=== PATIENT | male | born 1945 | race Caucasian/White ===

== ENCOUNTER → 2016-04-26 | Outpatient (CLI) | payer OTHER, MEDICARE ==
[2016-04-26 10:58] LABS: BASOPHILS # (AUTO) 0.04 10*3/UL; BASOPHILS % (AUTO) 0.8 % (0-1); EOSINOPHILS % (AUTO) 3.9 % (0-8); HEMOGLOBIN 15.8 g/dL (14.0-18.0); IMM GRAN % (AUTO) 0.2 % (0-5); IMM GRAN# (AUTO) 0.01 10*3/UL; LYMPHOCYTES # (AUTO) 1.07 10*3/uL; LYMPHOCYTES % (AUTO) 21.1 % (10-50); MEAN CORPUSCULAR HEMOGLOBIN 29.4 PG (27-31); MEAN CORPUSCULAR HGB CONC 33.6 g/dL (33-37); MEAN PLATELET VOLUME 10.1 FL (7.4-12.2); MONOCYTES # (AUTO) 0.44 10*3/UL (0.3-0.8); MONOCYTES % (AUTO) 8.7 % (5-15); NEUTROPHILS # (AUTO) 3.32 10*3/UL; NEUTROPHILS % (AUTO) 65.3 % (50-80); RDW COEFFICIENT OF VARIATION 14.2 % (11.5-14.5); RED BLOOD COUNT 5.37 10^6/uL (4.70-6.10); WHITE BLOOD COUNT 5.08 10^3/uL (4.8-10.8)
[2016-04-26 10:59] LABS: PLATELET MORPHOLOGY COMMENT NORMAL MORPHOLOGY (NORM)
[2016-04-26 11:04] LABS: BILIRUBIN,URINE NEGATIVE (NEG); CLARITY,URINE CLEAR (CLEAR); GLUCOSE, URINE (UA) NEGATIVE (NEG); LEUKOCYTE ESTERASE ,URINE NEGATIVE (NEG); NITRATE,URINE NEGATIVE (NEG); OCCULT BLOOD,URINE NEGATIVE (NEG); PH,URINE 5.5 (5.0-8.5); PROTEIN,URINE NEGATIVE (NEG); UROBILINOGEN,URINE 0.2 mg/dL (0.2)
[2016-04-26 11:13] LABS: URINE SAMPLE TYPE VOIDED SPECIMEN
[2016-04-26 11:16] LABS: LDL CHOLESTEROL,CALCULATED 127.6 mg/dL; URIC ACID 4.2 mg/dl (3.8-8.5)
[2016-04-28 08:03] LABS: BILIRUBIN,TOTAL 1.3 mg/dL (0.3-1.2); BUN/CREATININE RATIO 21.25 (6-20); CALCIUM 9.9 mg/dL (8.7-10.7); CREATININE 0.8 mg/dL (0.70-1.50); POTASSIUM 4.2 meq/L (3.8-5.2); TOTAL PROTEIN 7.1 g/dL (6.1-8.0)
== END ==
LOC: MOB LAB 09:57
DX: I10 Essential (primary) hypertension (principal); E55.9 Vitamin D deficiency, unspecified; M10.9 Gout, unspecified; Z12.5 Encounter for screening for malignant neoplasm of prostate
CPT/HCPCS: 36415; 80053; 80061; 81001; 82306; 84443; 84550; 85025; G0103; 99213

== ENCOUNTER → 2016-08-12 | Outpatient (CLI) | payer OTHER, MEDICARE ==
[2016-08-12 17:29] LABS: BUN/CREATININE RATIO 16.66 (6-20); CALCIUM 9.5 mg/dL (8.7-10.7); SERUM ALBUMIN 4.3 g/dL (3.5-4.8)
== END ==
LOC: MOB LAB 14:52
DX: H02.403 Unspecified ptosis of bilateral eyelids (principal); E66.9 Obesity, unspecified; I10 Essential (primary) hypertension
CPT/HCPCS: 36415; 80053

== ENCOUNTER → 2016-09-22 | Outpatient (CLI) | payer OTHER, MEDICARE | LOC: SLEEP LAB 20:03 | DX: G47.33 Obstructive sleep apnea (adult) (pediatric) (principal); G47.34 Idiopathic sleep related nonobstructive alveolar hypoventilation | CPT/HCPCS: 95810 ==

== ENCOUNTER → 2016-10-11 | Outpatient (CLI) | payer OTHER, MEDICARE | LOC: MMPC 11:11 | DX: H02.403 Unspecified ptosis of bilateral eyelids (principal); I10 Essential (primary) hypertension; E66.9 Obesity, unspecified; G47.30 Sleep apnea, unspecified; M10.9 Gout, unspecified; E55.9 Vitamin D deficiency, unspecified | CPT/HCPCS: 99213; G0463 ==

== ENCOUNTER → 2016-11-16 | Outpatient (CLI) | payer OTHER, MEDICARE | LOC: SLEEP LAB 20:48 | DX: G47.33 Obstructive sleep apnea (adult) (pediatric) (principal); G47.34 Idiopathic sleep related nonobstructive alveolar hypoventilation | CPT/HCPCS: 95811 ==

== ENCOUNTER 2018-02-13 06:03 | Inpatient (IN) ==
[~2018-02-13 06:03] MED LIST: BUPivacaine Liposome/PF (Exparel) Inj 20ml vial INFIL ONE; Ketorolac Inj 30 MG, Morphine Inj (Ortho Cocktail) 5 MG, BUPivacaine Inj 0.25% PF 150 MG SPLASH ONE; LIDOCAINE W/ SODIUM BICARB 0.5 ML SYR ONE; LIDOCAINE W/ SODIUM BICARB 0.5 ML SYR SUBD ONE; Lactated Ringers 1,000 ML PRIMARY IV ONE; Lactated Ringers 1,000 ML PRIMARY IV SCH; Nasal Sanitizer POPSWAB ampule 3 AMP (Nozin) PREOP DOSE ENOS SCH; ceFAZolin Inj 2gm (Premix) 2 GM/50 ML BAG IV ONE
[2018-02-13 06:47] LABS: BILIRUBIN,URINE NEGATIVE (NEG); CLARITY,URINE CLEAR (CLEAR); COLOR,URINE YELLOW (Y); GLUCOSE, URINE (UA) NEGATIVE (NEG); OCCULT BLOOD,URINE NEGATIVE (NEG); PH,URINE 5.5 (5.0-8.5); PROTEIN,URINE NEGATIVE (NEG); UROBILINOGEN,URINE 0.2 EU/dL (0.2)
[2018-02-13 06:49] LABS: URINE SAMPLE TYPE CLEAN CATCH URINE
[2018-02-13] MEDS ORDERED: MIDAZOLAM HCL 2 MG/2 ML VIAL ONE (06:57)
[2018-02-13] MEDS ORDERED: LIDOCAINE 2%/ EPI 1:200,000 - 20 ML VIAL ONE (06:57)
[2018-02-13] MEDS ORDERED: BUPIVACAINE 0.5% W/ EPI - 10 ML VIAL ONE (06:58)
[2018-02-13] MEDS ORDERED: fentaNYL Inj 250 MCG/5 ML VIAL ONE (06:58)
[2018-02-13] MEDS ORDERED: PROPOFOL 10 MG/1 ML (200 MG/20 ML) VIAL IV ONE ×2 (07:16→11:54)
[2018-02-13] MEDS ORDERED: Sodium Chloride 0.9% 500 ML ONE (07:19)
[2018-02-13] MEDS ORDERED: Sodium Chloride 0.9% 0 ML PRIMARY IV ONE (07:19)
[2018-02-13] MEDS ORDERED: HEPARIN 10,000 UNIT/1 ML ONE (07:23)
[2018-02-13] MEDS ORDERED: Gentamicin Inj 40 MG/ML VIAL ONE (07:23)
[2018-02-13] MEDS ORDERED: BACITRACIN 50,000 UNIT VIAL IRRIG ONE (07:24)
--- NOTE | 2018-02-13 07:41 | CRNA.PROCE ---
Nerve Block Documentation - - Safety Measures: Time Out Taken, Site Verified - - Type of Nerve Block Used: Left Adductor Canal Nerve Block Position for Nerve Block: Supine Moniters Used During Block: EKG, SPO2, NIBP Oxygen Supplemented: Yes Sedation Used - Enter Amount in Comment Field [ANES.SEDAT]: Midazolam (mg): Yes (2mg), Fentanyl (mcg): Yes (100mcg) Skin Prep Used: ChloroPrep Technique: Ultrasound Nerve Block Needle Used: 80 mm ProBlk II Local Anesthetic - Enter Amt in Comment Field [ANES.LOCNB]: 0.5 % Bupivicaine with Epinephrine 1:200,000 (mL): Yes (20ml), 2 % Xylocaine with Epinephrine 1: 200,000 (mL): Yes (20ml) Anesthesia Time - Other Weight: 119.295 kg Height: 6 ft 3 in Body Mass Index (BMI): 32.8
[2018-02-13] MEDS ORDERED: BUPivacaine Liposome/PF (Exparel) Inj 20ml vial INFIL ONE (07:46)
[2018-02-13] MEDS ORDERED: ceFAZolin Inj 3 GM in Sodium Chloride 0.9% 100 ML IV ONE (08:00)
[2018-02-13] MEDS ORDERED: ePHEDrine Inj 50 MG/ML AMP ONE (08:25)
[2018-02-13] MEDS ORDERED: KETAMINE 100 MG/1 ML - 5 ML ONE (08:27)
[2018-02-13] MEDS ORDERED: Sodium Chloride 0.9% vial 10 ML ONE (08:30)
[2018-02-13] MEDS ORDERED: Bacteriostatic NaCl Inj 30ml Vial ONE (08:30)
[2018-02-13] MEDS ORDERED: TRANEXAMIC ACID 1,000 MG / 10 ML VIAL ONE ×2 (08:33→10:51)
[2018-02-13] MEDS ORDERED: Lactated Ringers 1,000 ML PRIMARY IV ONE (09:49)
[2018-02-13] MEDS ORDERED: HYDROmorphone 2 MG/1 ML ONE (12:21)
--- NOTE | 2018-02-13 12:36 | ORTHO.OP ---
- - -: See Dictated Operative Report Procedure Codes - Lower Extremity/Knee Procedures Primary Lower Extremity Procedure Code: 20557 : TKA (Mimi DAVIS assisted)
[2018-02-13] MEDS ORDERED: MAG HYDROX/AL HYDROX/SIMETH 30 ML SUSP PO PRN (12:56)
[2018-02-13] MEDS ORDERED: BISACODYL 10 MG SUPPOSITORY RECTAL PRN (12:56)
[2018-02-13] MEDS ORDERED: Prochlorperazine Tab 10 MG TAB PO PRN (12:56)
[2018-02-13] MEDS ORDERED: BISACODYL 5 MG TABLET PO PRN (12:56)
[2018-02-13] MEDS ORDERED: diphenhydrAMINE 25 MG CAPSULE PO PRN (12:56)
[2018-02-13] MEDS ORDERED: ACETAMINOPHEN 325 MG TABLET PO PRN (12:56)
[2018-02-13] MEDS ORDERED: CALCIUM CARBONATE 500 MG (TUMS) CHEWABLE TABLET PO PRN (12:56)
[2018-02-13] MEDS ORDERED: ONDANSETRON 4 MG/2 ML VIAL IVP PRN (12:56)
[2018-02-13] MEDS ORDERED: HYDROmorphone 2 MG/1 ML IVP PRN (12:56)
[2018-02-13] MEDS ORDERED: Ondansetron ODT Tab 8 MG TAB PO PRN (12:56)
--- NOTE | 2018-02-13 13:09 | DI ---
LEFT KNEE, 02/13/2018 11:36 AM: Clinical History: Status post total knee replacement. Osteoarthritis. Previous Exam: 02/12/[address] scan of the left knee from 01/10/2018. AP and lateral views are submitted. The patient is status post total left knee replacement. The prost hetic joint articulates normally. Reading: Status post total left knee replacement. The prosthetic joint articulates normally.
--- NOTE | 2018-02-13 13:42 | CONSULT ---
Consult Note - Consult Consult Date: 02/13/18 Reason for Consult: PostOp Consulation : Ortho Requesting Physician: Dr. Morales Primary Care Provider: Tomas Coleman MD - History of Present Illness History of Present Illness: This is a 72 years old male with medical history significant for history of hypertension, gout, sleep apnea on CPAP who came into the hospital to have left total knee replacement and was done by Dr. Morales today. The hospitalist service were consulted for management of medical issues. Patient was seen postoperatively. He had the a block so he is not complaining from any pain. There is no shortness of breath, nausea. He took his medication earlier today. Past Medical History Medical History: 1. Hypertension. 2. History of gout. 3. History of for sleep apnea on CPAP. 4. History of mitral valve prolapse Surgical History: 1. History of appendectomy. 2. History of tonsillectomy. 3. History of umbilical hernia repair Family History: Reviewed an Not Pertinent Past Social History: Does not smoke, does drink. No drugs. Tobacco Use: Never Smoker In the Past 12 Months, Have Used or Abuse Any of the Following Substance: None Alcohol Use: None Review of Systems - Review of Systems All Systems: Reviewed & No Additional Complaints Except as Stated Medication / Allergies Home Medications: Home Medications 3 Medication Instructions Recorded Confirmed Type Aspirin [Aspirin Ec] 1 tab PO DAILY tab 11/11/13 02/08/18 History Cholecalciferol (Vitamin D3) 1 tab PO DAILY tab 11/11/13 02/13/18 History [Vitamin D3] allopurinol 300 mg tablet 300 mg PO QDAY #90 tab 09/08/17 02/13/18 Rx amlodipine 5 mg tablet 5 mg PO QD #90 tab 09/08/17 02/13/18 Rx benazepril 40 mg tablet 40 mg PO QD #90 tab 09/08/17 02/13/18 Rx latanoprost 0.005 % eye drops 1 drp OP QDAY #2.5 ml 09/08/17 02/13/18 Rx terazosin 5 mg capsule 5 mg PO QD #90 cap 09/08/17 02/13/18 Rx scopolamine 1 mg over 3 days 1 patch TRANSDERM Q3D PRN #10 ea 09/19/17 02/13/18 Rx transdermal patch indomethacin 50 mg capsule 50 mg PO TID PRN cap 10/19/17 02/13/18 History Allergies/Adverse Reactions: Allergies 3 Allergy/AdvReac Type Severity Reaction Status Date / Time No Known Drug Allergies Allergy NOT Verified 02/13/18 06:30 APPLICABLE Exam - Vitals Vital Signs: Vital Signs Temperature 97.5 F Temperature Source Temporal Artery Scan Pulse Rate [Pulse Oximeter] 53 Pulse Rate 61 Respiratory Rate 16 Blood Pressure [Left Arm] 124/71 Blood Pressure 128/70 Pulse Ox 93 Oxygen Flow Rate RA Oxygen Delivery Method Room Air Height 6 ft 3 in Weight 263 lb - General General Appearance: No Acute Distress, Cooperative, Obese - Head Head Exam: Normal Inspection - Eye Eye Exam: POSITIVE: Normal Appearance - ENT ENT Exam: POSITIVE: Normal Exam - Neck Neck Exam: Normal Inspection - Respiratory Respiratory Exam: POSITIVE: Clear to Auscultation - Bilaterally - Cardiovascular Cardiovascular Exam: POSITIVE: RRR - GI/Abdominal GI/Abdominal Exam: POSITIVE: Normal Bowel Sounds, Non Tender, Non Distended, Soft, No Organomegaly - Rectal Rectal Exam: POSITIVE: Deferred - External Exam: POSITIVE: Deferred - Extremities Additional Extremities Exam Details: Dressing applied to the left knee. SCD on the right. - Neurological Neurological Exam: POSITIVE: Alert, Oriented x 3, CN II-XII Intact, No Facial Droop, Speech Intact / Clear - Psychiatric Psychiatric Exam: POSITIVE: Normal Affect Assessment and Plan - Patient Problems (1) Status post left knee replacement Current Visit: Yes Status: Acute Comment: Pain medication, antiemetics and DVT prophylaxis were written by Dr. Morales. He put him on Lovenox. Code(s): Z96.652 - Presence of left artificial knee joint (2) Benign essential hypertension Current Visit: No Status: Chronic Onset Date: 09/11/14 Comment: Same med Code(s): I10 - Essential (primary) hypertension (3) Sleep apnea Current Visit: No Status: Chronic Onset Date: 11/11/13 Comment: Continue CPAP Code(s): G47.30 - Sleep apnea, unspecified Qualifiers: Sleep apnea type: obstructive Qualified Code(s): G47.33 - Obstructive sleep apnea (adult) (pediatric); G47.33 - Obstructive sleep apnea (adult) ( pediatric) (4) Gout Current Visit: No Status: Chronic Onset Date: 11/11/13 Comment: Continue with allopurinol Code(s): M10.9 - Gout, unspecified
[2018-02-13] MEDS: HYDROcodone-APAP 10 MG-325 MG TABLET PO PRN ×3 (13:45→23:52)
[2018-02-13] MEDS: Lactated Ringers 1,000 ML PRIMARY IV SCH ×2 (13:45→23:49)
[2018-02-13] MEDS: ceFAZolin Inj 3 GM in Sodium Chloride 0.9% 100 ML IV SCH ×2 (16:43→23:48)
--- NOTE | 2018-02-13 17:59 | CRNA.PROGR ---
Anesthesia Time - Procedure/Recovery Time Start Date: 02/13/18 End Date: 02/13/18 Anesthesia : Time In: 07:51 Anesthesia : Time Out: 12:05 Anesthesia : Total Time: 254 - Block Time Start Date: 02/13/18 End Date: 02/13/18 PreOp Block : Time In: 07:00 PreOp Block : Time Out: 07:10 PreOp Block : Total Time: 10 - Total Anesthesia Time Total Anesthesia Time (minutes): 264 - Other Weight: 119.295 kg Height: 6 ft 3 in Body Mass Index (BMI): 32.8 Physical Status: P3 Anesthesia Type: General Anesthesia : LMA
--- NOTE | 2018-02-13 18:00 | CRNA.PROGR ---
Anesthesia Recovery Phase I - Post Anesthesia Evaluation Patient's Condition on Arrival in Phase I: Stable Pain Level: 2
--- NOTE | 2018-02-13 20:02 | ORTHO.PROG ---
Last Taken Vital Signs: Vital Signs - Last Taken Temperature 98 F 02/13/18 16:46 Pulse Rate 75 02/13/18 16:46 Respiratory Rate 20 02/13/18 16:46 Blood Pressure 142/65 02/13/18 16:46 Pulse Ox 94 02/13/18 16:46 Subjective: Patient with no pain in left knee well-controlled with blocks and intraoperative injection Objective: Patient and straight leg raise motor and sensory exam of the ankle is good dressing is clean and dry. Patient with good pulses brisk refill Laboratory Results 02/13/18 02/13/18 Range/Units 06:05 06:40 Ur Collection Type Clean catch urine Urine Color Yellow (Y) Urine Clarity Clear (CLEAR) Urine pH 5.5 (5.0-8.5) Ur Specific [place] 1.025 (1.005-1.030) Urine Protein Negative (NEG) mg/dl Urine Glucose (UA) Negative (NEG) mg/dL Urine Ketones Negative (NEG) Urine Occult Blood Negative (NEG) Urine Nitrate Negative (NEG) Urine Bilirubin Negative (NEG) Urine Urobilinogen 0.2 (0.2) EU/dL Ur Leukocyte Esterase Negative (NEG) Blood Type A POSITIVE Antibody Screen Negative Crossmatch See Detail Vital Signs (Last 8 hours) Temp Pulse Pulse Resp BP BP Pulse Ox 02/13/18 16:46 98 F 75 20 142/65 94 02/13/18 14:45 98 F 55 L 16 143/68 97 02/13/18 14:15 97.7 F 53 L 20 145/70 98 02/13/18 13:45 97.4 F 53 L 16 125/58 94 02/13/18 13:30 97.5 F 53 L 16 124/71 93 02/13/18 13:00 97.4 F 51 L 28 H 124/71 92 02/13/18 12:56 16 02/13/18 12:33 61 14 128/70 95 02/13/18 12:24 63 14 125/70 92 02/13/18 12:14 63 14 121/69 96 02/13/18 12:10 56 L 14 116/75 96 02/13/18 12:05 97.1 F 71 14 104/83 95 Assessment: Left total knee replacement doing well Plan: Pain control with oral and IV medications available as blocks wear off Ice and elevation Physical therapy and occupational therapy for mobilization DVT prophylaxis with pneumatic sequentials and Lovenox
[2018-02-13] MEDS: DOCUSATE 100 MG CAPSULE PO SCH (20:07)
[2018-02-13] MEDS: Terazosin Cap 5 MG CAP PO SCH (20:08)
[2018-02-14] MEDS: HYDROcodone-APAP 10 MG-325 MG TABLET PO PRN ×5 (04:47→20:25)
[2018-02-14 05:33] LABS: BLOOD UREA NITROGEN 17 mg/dL (7-22); BUN/CREATININE RATIO 21.25 (6-20); Hematocrit [HCT] 41.9 % (42.0-52.0); Hemoglobin [HGB] 13.4 g/dL (14.0-18.0); MEAN CORPUSCULAR VOLUME 90.7 FL (80-90); MEAN PLATELET VOLUME 10.4 FL (7.4-12.2); RED BLOOD COUNT 4.62 10^6/uL (4.70-6.10)
--- NOTE | 2018-02-14 07:36 | ORTHO.PROG ---
Last Taken Vital Signs: Vital Signs - Last Taken Temperature 98.4 F 02/14/18 05:00 Pulse Rate 78 02/14/18 05:00 Respiratory Rate 20 02/14/18 05:00 Blood Pressure 144/69 02/14/18 05:00 Pulse Ox 94 02/14/18 05:00 Subjective: Patient doing well good pain control this morning Objective: Left dressing is clean and dry motor and sensory exam in the lower extremity is good patient with good motion foot and ankle and knee. Patient with dressing in place. Pain popliteal or discomfort no proximal thigh pain or adductor pain. No distal swelling or edema Laboratory Results 02/13/18 02/14/18 02/14/18 Range/Units 06:40 04:35 04:35 WBC 6.44 (4.8-10.8) 10^3/uL RBC 4.62 L (4.70-6.10) 10^6/uL Hgb 13.4 L (14.0-18.0) g/dL Hct 41.9 L (42.0-52.0) % MCV 90.7 H (80-90) FL MCH 29.0 (27-31) PG MCHC 32.0 L (33-37) g/dL RDW Std Deviation 47.2 (39-50) fL RDW Coeff of Emely 14.4 (11.5-14.5) % Plt Count 153 (140-350) 10*3/uL MPV 10.4 (7.4-12.2) FL Sodium 142 (135-145) meq/L Potassium 4.0 (3.8-5.2) meq/L Chloride 108 (98-112) meq/L Carbon Dioxide 26 (23-33) meq/L Anion Gap 8 (5-20) BUN 17 (7-22) mg/dL Creatinine 0.8 (0.70-1.50) mg/dL BUN/Creatinine Ratio 21.25 H (6-20) Glucose 111 H (78-110) mg/dL Calculated Osmolality 296.0 H (267-292) mOsm/kg Calcium 8.6 L (8.7-10.7) mg/dL Blood Type A POSITIVE Antibody Screen Negative Crossmatch See Detail Vital Signs (24 hrs) Temp Pulse Pulse Resp BP BP Pulse Ox 02/14/18 05:00 98.4 F 78 20 144/69 94 02/14/18 00:06 97.8 F 85 16 161/71 92 02/13/18 20:28 98.7 F 81 20 136/66 93 02/13/18 16:46 98 F 75 20 142/65 94 02/13/18 14:45 98 F 55 L 16 143/68 97 02/13/18 14:15 97.7 F 53 L 20 145/70 98 02/13/18 13:45 97.4 F 53 L 16 125/58 94 02/13/18 13:30 97.5 F 53 L 16 124/71 93 02/13/18 13:00 97.4 F 51 L 28 H 124/71 92 02/13/18 12:56 16 02/13/18 12:33 61 14 128/70 95 02/13/18 12:24 63 14 125/70 92 02/13/18 12:14 63 14 121/69 96 02/13/18 12:10 56 L 14 116/75 96 02/13/18 12:05 97.1 F 71 14 104/83 95 Assessment: Left total knee replacement doing well Plan: Continue with previous plan anticoagulation physical therapy and occupational therapy, pain control, DVT prophylaxis
--- NOTE | 2018-02-14 08:01 | PDOC(PROG) ---
Date of Service: 02/14/18 Time of Service: 08:00 Interval History: Subjective Patient said he had a good night last night, pain is under control. No new symptoms. Objective : Data - Labs CBC and BMP: 02/14/18 04:35 02/14/18 04:35 Objective : Exam - General General Appearance: No Acute Distress, Cooperative, Obese - Head Head Exam: Normal Inspection - Eye Eye Exam: Normal Appearance - ENT ENT Exam: Normal Exam - Neck Neck Exam: Normal Inspection - Respiratory Respiratory Exam: Clear to Auscultation - Bilaterally - Cardiovascular Cardiovascular Exam: RRR - GI/Abdominal GI/Abdominal Exam: Normal Bowel Sounds, Non Tender, Non Distended, Soft, No Organomegaly - Rectal Rectal Exam: Deferred - External Exam: Deferred Exam: Deferred - Extremities Additional Extremities Exam Details: SCD boots applied - Neurological Neurological Exam: Alert, Oriented x 3, CN II-XII Intact, No Facial Droop, Speech Intact / Clear - Psychiatric Psychiatric Exam: Normal Affect Assessment and Plan - Patient Problems (1) Status post left knee replacement Current Visit: Yes Status: Acute Comment: Continue PT and OT, for DVT prophylaxis he is on Lovenox. Same pain medications. Code(s): Z96.652 - Presence of left artificial knee joint (2) Benign essential hypertension Current Visit: No Status: Chronic Onset Date: 09/11/14 Comment: Same medications Code(s): I10 - Essential (primary) hypertension (3) Sleep apnea Current Visit: No Status: Chronic Onset Date: 11/11/13 Comment: He is on CPAP Code(s): G47.30 - Sleep apnea, unspecified Qualifiers: Sleep apnea type: obstructive Qualified Code(s): G47.33 - Obstructive sleep apnea (adult) (pediatric); G47.33 - Obstructive sleep apnea (adult) ( pediatric) (4) Gout Current Visit: No Status: Chronic Onset Date: 11/11/13 Comment: Same med Code(s): M10.9 - Gout, unspecified
[2018-02-14] MEDS: ENOXAPARIN SODIUM 30 MG/0.3 ML SYRINGE SUBCUT SCH ×2 (08:43→20:24)
[2018-02-14] MEDS: CHOLECALCIFEROL 1000 IU TABLET PO SCH (08:43)
[2018-02-14] MEDS: BENAZEPRIL HCL 20 MG TABLET PO SCH (08:43)
[2018-02-14] MEDS: AmLODIPine Tab 5 MG TABLET PO SCH (08:44)
[2018-02-14] MEDS: ALLOPURINOL 300 MG TABLET PO SCH (08:44)
[2018-02-14] MEDS: DOCUSATE 100 MG CAPSULE PO SCH ×2 (08:44→20:25)
[2018-02-14] MEDS ORDERED: BENAZEPRIL 10 MG TABLET PO SCH (09:00)
--- NOTE | 2018-02-14 10:33 | PTI REPORT ---
Thank you for the referral of [facility] Patient was seen on 02/13/18 for Total Knee Replacement SUBJECTIVE: The patient is a 72 year old male who under went a left total knee replacement this morning. Patient states that he is doing well he reports 0 out of 10 pain but does state that he has a little numbness still in the lower extremity secondary to his adductor block. Patient states that he lives here in [place] with his he states that they live in a split level home that has 6 stairs into the house and 12 stairs within the house he states that he will be staying in the downstairs area where he has a bedroom and bathroom all on one floor. Patient states that he was independent with ADL's prior to surgery and did not use any assisted device prior to surgery. PAST MEDICAL HISTORY: Past medical history can be found in the patient's medical record. OBJECTIVE FINDINGS: Patient was alert and oriented and standing up upon PT arrival. Patient was supine in bed with head of bed elevated. Patient did have PREVENA dressing over his total knee replacement and was covered with an kevin bandage. Patients blood pressure was taken in supine position 128/67. Patient was able to move from a supine to seated edge of bed position with stand by assist times 1 for safety once in a seated position patient stated he felt a little lightheaded but demonstrated good seated balance. Patients blood pressure 146/57. Patient sat edge of bed for a couple of minutes a gait belt was placed around patient and patient was instructed on how to properly perform a sit to stand transfer with utilizing the walker. Patient was able to perform the sit to stand transfer with contact guard assist times 1 for safety once in a standing position patient stated that he had a little bit more light headedness but did have fair standing balance with hand held assist times 2 on the walker and contact guard assist his blood pressure in standing position 119/77. Patient did state that he wanted to try to use the bathroom once he was standing and did use the bedside urinal standing which did take him approx. 4 minutes of standing time. Patient did require contact guard assist times 2 for standing balance at that time. When patient was completed with that task he did want to ambulate a short distance in the room with the front wheeled walker he was able to ambulate 10 feet with front wheeled walker and contact guard assist times 2 for safety and to maneuver the IV pole he then transferred from a seated to standing position in the bed with stand by assist times 1 for safety and a seated to supine position with stand by assist times 1 for safety. Once in the bed patient was instructed on bed mobility in order to get him in proper place in the bed. After that we insured that his pneumatic pumps were on both lower extremities and the call light was placed within reach of patient and the bed alarm was set. ASSESSMENT: Patient has good rehab potential. Problem List pain of the left knee decrease in active range of motion of the left knee decrease strength of the left lower extremity Short-Term Goals: To be met by discharge from inpatient: Patient will be able to transfer from bed to stand safely and independently. Patient will be able to ambulate at least 150 feet with walker safely and independently. Patient will be able to ambulate up and down 1 flight of stairs with use of walker safely and independently. Long-Term Goals: To be met following discharge from inpatient: Patient will be seen by outpatient physical therapy for post total knee rehab. TREATMENT PLAN: Patient will be seen B.I.D during the week and one time per day over the weekend as an inpatient to address the above goals and objectives. INITIAL TREATMENT: Treatment today consisted of the initial evaluation and one unit of functional activity please see the objective findings. EKATERINA
--- NOTE | 2018-02-14 11:33 | PT.PROG ---
Progress Note Progress Note: S. Patient stated that he is feeling a little sore this morning, however agreed to go for a walk this morning. O. Patient ambulated 60 feet in the [place] and back to his room where he was left in bed with alarm and call light. A. Patient tolerated ambulation well this morning, he had no new complaints of pain or problems, he was able to ambulate with contact guard assist Patient would continue to benefit from skilled therapy to increase mobility and endurance. P. Continue POC.
--- NOTE | 2018-02-14 16:23 | CRNA.PROGR ---
Anesthesia Note - Progress Notes Anesthesia Progress Note: Awake, alert cheerful. Has been down to P.T. No catheter, has been able to void. No nausea. His voice does sound more hoarse today than yesterday. He denies feeling worse or any increase in sputum. No apparent anesthetic difficulties.
--- NOTE | 2018-02-14 16:29 | PT.PROG ---
Progress Note Progress Note: S: Patient states he doesn't have much pain this afternoon. O: Patient completed LE strengthening exercises with good tolerance. He was able to ambulate 30 ft prior to therapy and another 30 ft following treatment session. PROM to R knee was tolerated well. A: Patient tolerated all activities well. Patient will benefit from skilled intervention to improve ROM and strength. P: Patient will continue with LE strengthening and ambulation. Patient will be seen twice during the day and once over the weekend until time of discharge.
[2018-02-14] MEDS: Lactated Ringers 1,000 ML PRIMARY IV SCH (17:26)
[2018-02-14] MEDS: Terazosin Cap 5 MG CAP PO SCH (20:25)
[2018-02-15] MEDS: HYDROcodone-APAP 10 MG-325 MG TABLET PO PRN ×6 (00:30→20:24)
[2018-02-15 04:55] LABS: Hematocrit [HCT] 37.4 % (42.0-52.0); MEAN CORPUSCULAR HGB CONC 32.1 g/dL (33-37); MEAN CORPUSCULAR VOLUME 90.3 FL (80-90); MEAN PLATELET VOLUME 10.3 FL (7.4-12.2); RED BLOOD COUNT 4.14 10^6/uL (4.70-6.10)
[2018-02-15 05:12] LABS: BLOOD UREA NITROGEN 14 mg/dL (7-22)
[2018-02-15] MEDS: BENAZEPRIL HCL 20 MG TABLET PO SCH (08:25)
[2018-02-15] MEDS: AmLODIPine Tab 5 MG TABLET PO SCH (08:25)
[2018-02-15] MEDS: CHOLECALCIFEROL 1000 IU TABLET PO SCH (08:25)
[2018-02-15] MEDS: ALLOPURINOL 300 MG TABLET PO SCH (08:25)
[2018-02-15] MEDS: DOCUSATE 100 MG CAPSULE PO SCH ×2 (08:25→20:25)
[2018-02-15] MEDS: ENOXAPARIN SODIUM 30 MG/0.3 ML SYRINGE SUBCUT SCH ×2 (08:26→20:25)
--- NOTE | 2018-02-15 09:26 | PDOC(PROG) ---
Date of Service: 02/15/18 Time of Service: 09:15 Interval History: Subjective Patient denying new symptoms. Patient pain seemed to be controlled with current pain medications. Objective : Data - Labs CBC and BMP: 02/15/18 04:20 02/15/18 04:20 Objective : Exam - General General Appearance: No Acute Distress, Cooperative, Obese - Head Head Exam: Normal Inspection - Eye Eye Exam: Normal Appearance - ENT ENT Exam: Normal Exam - Neck Neck Exam: Normal Inspection - Respiratory Respiratory Exam: Clear to Auscultation - Bilaterally - Cardiovascular Cardiovascular Exam: RRR - GI/Abdominal GI/Abdominal Exam: Normal Bowel Sounds, Non Tender, Non Distended, Soft, No Organomegaly - Rectal Rectal Exam: Deferred - External Exam: Deferred - Extremities Additional Extremities Exam Details: Dressing applied to the left knee. - Back Back Exam: Normal Inspection - Neurological Neurological Exam: Alert, Oriented x 3, Normal Gait, CN II-XII Intact, No Facial Droop, Speech Intact / Clear - Psychiatric Psychiatric Exam: Normal Affect Assessment and Plan - Patient Problems (1) Status post left knee replacement Current Visit: Yes Status: Acute Comment: Continue PT and OT. For DVT prophylaxis he is on Lovenox. Per my discussion with OT he is doing well. Question home tomorrow Code(s): Z96.652 - Presence of left artificial knee joint (2) Benign essential hypertension Current Visit: No Status: Chronic Onset Date: 09/11/14 Comment: Same med Code(s): I10 - Essential (primary) hypertension (3) Sleep apnea Current Visit: No Status: Chronic Onset Date: 11/11/13 Comment: He is on CPAP Code(s): G47.30 - Sleep apnea, unspecified Qualifiers: Sleep apnea type: obstructive Qualified Code(s): G47.33 - Obstructive sleep apnea (adult) (pediatric); G47.33 - Obstructive sleep apnea (adult) ( pediatric) (4) Gout Current Visit: No Status: Chronic Onset Date: 11/11/13 Comment: Continue allopurinol Code(s): M10.9 - Gout, unspecified
--- NOTE | 2018-02-15 09:51 | OTI REPORT ---
Thank you for the referral of [facility]. He was seen on 02/14/18 for Total Knee Replacement. SUBJECTIVE: Patient is a 72 year old male who is being secondary to a total knee replacement. He reports prior to admission he was independent with all ADL's however was having an increase knee pain. PAST MEDICAL HISTORY: Past medical history can be found in the patient's medical record. OBJECTIVE FINDINGS: Today patient was able to come from supine to sit with increased time while sitting edge of bed he was able to demonstrate donning shorts with increase time socks he just needed barely any mid assist but did need a little bit of assistance but he stated that his would be able to do that he was not interested in any adaptive devices he does have a shower chair as well as a higher toilet at home. ASSESSMENT: Patient did well and is not needing any adaptive devices and has good flexibility to dress lower extremities. TREATMENT PLAN: Patient will be seen B.I.D during the week and one time per day over the weekend as an inpatient to address the above goals and objectives. INITIAL TREATMENT: KAID
--- NOTE | 2018-02-15 11:28 | PT AM DAY ---
Diagnosis : L Total Knee Replacement AM - Physical Therapy S: Patient was seen this morning and he was brought to therapy via wheelchair. He was seen today for some heat. O: Patient participated in open chain exercises and sit to stands. He is still having trouble initiating independent quad control. Dorsi flexion is a little slower and weaker coming back compared to the opposite side as well but it is working. He did sit to stands and some boxes. He had range of motion for - 2 to 100 degrees today. We will attempt some stair activities within the afternoon and hopefully his balance and quad control will be improving. P: Continue seeing patient BID during the week and one time per day over the weekend for transfers, ambulation, and range of motion/strengthening exercises. EKATERINA
[2018-02-15 11:55] VITALS: RESP 20
--- NOTE | 2018-02-15 16:42 | PT.PROG ---
Progress Note Progress Note: S. Patient stated that he is a little sore this afternoon, however he feels that he is getting stronger. O. Patient ambulated 50 feet to the wheelchair and was wheeled to the therapy gym where he had heat and micro massage to decrease pain and swelling, patient then performed, heel slides, quad sets, ankle pumps, short arc quads, hip abduction/adduction, sit to stands, box step ups (#3 box) all x 10 then ambulated 70 feet to the wheelchair and was left in bed with alarm and call light. A. Patient tolerated therapy well this afternoon, he was able to perform all exercises with no increase in pain or problems. slight decrease in edema noted after micro massage, he would continue to benefit from skilled therapy to increase strength and mobility. Patient will perform stair training 11-2 AM. P. continue POC.
--- NOTE | 2018-02-15 17:36 | ORTHO.PROG ---
Last Taken Vital Signs: Vital Signs - Last Taken Temperature 98.8 F 02/15/18 16:45 Pulse Rate 68 02/15/18 16:45 Respiratory Rate 20 02/15/18 16:45 Blood Pressure 142/55 02/15/18 16:45 Pulse Ox 90 02/15/18 16:45 Subjective: Patient seen this morning doing well pain controlled oral medication Objective: Patient with good pulses brisk refill sensory exam was intact dressing was in place no evidence of infection moderate amount of swelling to the lower extremity with some bruising and ecchymosis. Laboratory Results 02/15/18 02/15/18 Range/Units 04:20 04:20 WBC 7.28 (4.8-10.8) 10^3/uL RBC 4.14 L (4.70-6.10) 10^6/uL Hgb 12.0 L (14.0-18.0) g/dL Hct 37.4 L (42.0-52.0) % MCV 90.3 H (80-90) FL MCH 29.0 (27-31) PG MCHC 32.1 L (33-37) g/dL RDW Std Deviation 45.8 (39-50) fL RDW Coeff of Emely 14.4 (11.5-14.5) % Plt Count 142 (140-350) 10*3/uL MPV 10.3 (7.4-12.2) FL Sodium 137 (135-145) meq/L Potassium 4.0 (3.8-5.2) meq/L Chloride 106 (98-112) meq/L Carbon Dioxide 26 (23-33) meq/L Anion Gap 5 (5-20) BUN 14 (7-22) mg/dL Creatinine 0.7 (0.70-1.50) mg/dL BUN/Creatinine Ratio 20.00 (6-20) Glucose 109 (78-110) mg/dL Calculated Osmolality 285.0 (267-292) mOsm/kg Calcium 8.2 L (8.7-10.7) mg/dL Vital Signs (24 hrs) Temp Pulse Pulse Resp BP BP Pulse Ox 02/15/18 16:45 98.8 F 68 20 142/55 90 02/15/18 12:05 98.5 F 02/15/18 11:50 99.5 F 67 20 129/58 91 02/15/18 07:00 78 62 17 02/15/18 06:47 98.4 F 62 17 142/58 92 02/15/18 04:48 98.8 F 73 20 144/62 94 02/15/18 00:35 98.6 F 77 20 142/68 93 02/14/18 20:50 99 F 78 20 177/59 92 02/14/18 18:56 78 18 Assessment: Left total knee replacement doing well Plan: Continue with current plan would DVT prophylaxis ice elevation and pain control
[2018-02-15] MEDS: Terazosin Cap 5 MG CAP PO SCH (20:25)
[2018-02-16] MEDS: HYDROcodone-APAP 10 MG-325 MG TABLET PO PRN ×4 (00:06→11:50)
[2018-02-16 04:42] VITALS: O2SAT 93
[2018-02-16 04:57] LABS: Hemoglobin [HGB] 12.4 g/dL (14.0-18.0); MEAN CORPUSCULAR HEMOGLOBIN 29.3 PG (27-31); MEAN CORPUSCULAR HGB CONC 32.6 g/dL (33-37); MEAN CORPUSCULAR VOLUME 89.8 FL (80-90); MEAN PLATELET VOLUME 10.4 FL (7.4-12.2); RED BLOOD COUNT 4.23 10^6/uL (4.70-6.10)
[2018-02-16 05:10] LABS: BLOOD UREA NITROGEN 13 mg/dL (7-22); BUN/CREATININE RATIO 16.25 (6-20)
[2018-02-16] MEDS: BENAZEPRIL HCL 20 MG TABLET PO SCH (08:13)
[2018-02-16] MEDS: ALLOPURINOL 300 MG TABLET PO SCH (08:13)
[2018-02-16] MEDS: CHOLECALCIFEROL 1000 IU TABLET PO SCH (08:13)
[2018-02-16] MEDS: DOCUSATE 100 MG CAPSULE PO SCH (08:13)
[2018-02-16] MEDS: AmLODIPine Tab 5 MG TABLET PO SCH (08:14)
[2018-02-16] MEDS: ENOXAPARIN SODIUM 30 MG/0.3 ML SYRINGE SUBCUT SCH (08:14)
[2018-02-16 08:17] VITALS: BP 144/60; TEMP 98.5
--- NOTE | 2018-02-16 11:01 | DCSUMMARY ---
Hospitalization Summary Admit Date: 02/13/2018 Discharge Date: 02/16/18 Hospital Course: Discharge diagnoses 1. Status post left knee replacement 2. History of hypertension 3. History of gout 4. History of sleep apnea on CPAP Hospital course This is a 72 years old male with medical history significant for history of hypertension, gout, sleep apnea on CPAP who came into the hospital to have a total left knee replacement and was done by Dr. Morales. The hospitalist service were consulted for management of medical issues. Patient was seen postoperatively. There was no significant complaint. His postoperative course was uneventful. We continued with his usual medication. He participated in physical therapy and progressed well. Did well on the day of discharge. He was cleared to be discharged from both the PT, OT and Dr. Morales. His physical exam was unremarkable on the day of discharge , his pain was controlled. Dr. Morales discharged him on Xarelto for additional 11 days. He will follow-up with Dr. Morales and with his PCP. Laboratory Results 02/16/18 02/16/18 Range/Units 04:40 04:40 WBC 6.96 (4.8-10.8) 10^3/uL RBC 4.23 L (4.70-6.10) 10^6/uL Hgb 12.4 L (14.0-18.0) g/dL Hct 38.0 L (42.0-52.0) % MCV 89.8 (80-90) FL MCH 29.3 (27-31) PG MCHC 32.6 L (33-37) g/dL RDW Std Deviation 45.4 (39-50) fL RDW Coeff of Emely 14.2 (11.5-14.5) % Plt Count 172 (140-350) 10*3/uL MPV 10.4 (7.4-12.2) FL Sodium 136 (135-145) meq/L Potassium 4.1 (3.8-5.2) meq/L Chloride 106 (98-112) meq/L Carbon Dioxide 25 (23-33) meq/L Anion Gap 5 (5-20) BUN 13 (7-22) mg/dL Creatinine 0.8 (0.70-1.50) mg/dL BUN/Creatinine Ratio 16.25 (6-20) Glucose 100 (78-110) mg/dL Calculated Osmolality 281.0 (267-292) mOsm/kg Calcium 8.4 L (8.7-10.7) mg/dL Discharge instruction Diet regular Activity as started Medications Current Medication(s) 3 Medication Instructions Recorded Confirmed Type Cholecalciferol (Vitamin D3) 1 tab PO DAILY tab 11/11/13 02/13/18 History [Vitamin D3] allopurinol 300 mg tablet 300 mg PO QDAY #90 tab 09/08/17 02/13/18 Rx amlodipine 5 mg tablet 5 mg PO QD #90 tab 09/08/17 02/13/18 Rx benazepril 40 mg tablet 40 mg PO QD #90 tab 09/08/17 02/13/18 Rx latanoprost 0.005 % eye drops 1 drp OP QDAY #2.5 ml 09/08/17 02/13/18 Rx terazosin 5 mg capsule 5 mg PO QD #90 cap 09/08/17 02/13/18 Rx scopolamine 1 mg over 3 days 1 patch TRANSDERM Q3D PRN #10 ea 09/19/17 02/13/18 Rx transdermal patch indomethacin 50 mg capsule 50 mg PO TID PRN cap 10/19/17 02/13/18 History HYDROcodone/APAP 10/325 Tab 1 - 2 tab PO Q4H PRN #50 tab 02/15/18 Rx [[place] 10/325 Tab] Cholecalciferol [Vitamin D3] 2,000 iu PO DAILY tab 02/16/18 Rx rivaroxaban 10 mg tablet 10 mg PO QDAY #11 tab 02/16/18 Rx Follow-up with PCP in 1-2 weeks, with Dr. Morales 1-2 weeks Condition at discharge stable for discharge Exam - Vitals Vital Signs: Vital Signs Temperature 98.5 F Temperature Source Temporal Artery Scan Pulse Rate [Apical] 78 Pulse Rate [Pulse Oximeter] 82 Pulse Rate 61 Respiratory Rate 20 Blood Pressure [Right Arm] 144/60 Blood Pressure [Left Arm] 129/58 Blood Pressure 128/70 Pulse Ox 93 Oxygen Flow Rate RA Oxygen Delivery Method Room Air Height 6 ft 3 in Weight 273 lb 1.6 oz - General General Appearance: No Acute Distress, Cooperative, Obese - Head Head Exam: Normal Inspection - Eye Eye Exam: POSITIVE: Normal Appearance - ENT ENT Exam: POSITIVE: Normal Exam - Neck Neck Exam: Normal Inspection - Respiratory Respiratory Exam: POSITIVE: Clear to Auscultation - Bilaterally - Cardiovascular Cardiovascular Exam: POSITIVE: RRR - GI/Abdominal GI/Abdominal Exam: POSITIVE: Normal Bowel Sounds, Non Tender, Non Distended, Soft, No Organomegaly - Rectal Rectal Exam: POSITIVE: Deferred - External Exam: POSITIVE: Deferred - Extremities Additional Extremities Exam Details: Dressing applied to the left knee. - Neurological Neurological Exam: POSITIVE: Alert, Oriented x 3, CN II-XII Intact, No Facial Droop, Speech Intact / Clear - Psychiatric Psychiatric Exam: POSITIVE: Normal Affect Patient Problems - Patient Problem List (1) Status post left knee replacement Status: Acute Code(s): Z96.652 - Presence of left artificial knee joint Category: Medical (2) Benign essential hypertension Status: Chronic Onset Date: 09/11/14 Code(s): I10 - Essential (primary) hypertension Category: Medical (3) Sleep apnea Status: Chronic Onset Date: 11/11/13 Code(s): G47.30 - Sleep apnea, unspecified Qualifiers: Sleep apnea type: obstructive Qualified Code(s): G47.33 - Obstructive sleep apnea (adult) (pediatric); G47.33 - Obstructive sleep apnea (adult) ( pediatric) Category: Medical (4) Gout Status: Chronic Onset Date: 11/11/13 Code(s): M10.9 - Gout, unspecified Category: Medical
--- NOTE | 2018-02-16 11:08 | PT.PROG ---
Progress Note Progress Note: S. Patient stated that he is feeling good this morning, he feels that he is ready to go home. O. Patient ambulated 60 feet to the stair well and ascended and descended 4 stairs then was wheeled to the therapy gym where he had heat and micro massage to decrease pain and edema then performed heel slides, quad sets, ankle pumps, short arc quads, hip abduction/adduction, straight leg raises, seated long arc quads, and sit to stands all x 10, patient then ambulated 80 feet to the wheelchair and was returned to his room where he was left with alarm and call light. A. Patient tolerated therapy well this morning, he was able to perform stair training well with no increase in pain or problems, patient would benefit from outpatient therapy however has met all inpatient goals at this time. P. continue POC until Discharge.
== END 2018-02-16 12:00 | disposition home or self-care (01) | DRG 470 ==
LOC: OPS 06:03 → MED/SURG 12:45
PROVIDERS: ADMIT Orthopaedic Surgery; ATTEND Orthopaedic Surgery